=== PATIENT | male | born 2000 | race Caucasian/White ===

== ENCOUNTER 2021-10-05 19:29 | Emergency (ER) | payer BC ==
[2021-10-05] MEDS ORDERED: Ondansetron 4 MG/2 ML SDV IVPUSH ONE (22:04)
[2021-10-05] MEDS ORDERED: Sodium Chloride 0.9% 1,000 ML IV SCH (22:15)
[2021-10-05] MEDS ORDERED: Lactated Ringers 1,000 ML IV ONE (22:43)
--- NOTE | 2021-10-05 23:12 | EDM.PDOC ---
ED HPI GENERAL MEDICAL PROBLEM - General Chief Complaint: Gastrointestinal Problem Stated Complaint: DEHYDRATION Time Seen by Provider: 10/05/21 23:11 Source of Information: Reports: Patient History Limitations: Reports: No Limitations - History of Present Illness INITIAL COMMENTS - FREE TEXT/NARRATIVE: Patient is 20-year-old male with no significant past medical history presenting with a chief complaint of vomiting and diarrhea. Duration of symptoms is 1 week. Symptoms are constant. Symptoms are gradually getting worse. Patient states been unable to eat or drink anything for the past 3 days. Patient reports feeling extremely dehydrated and weak. Patient denies any fevers, chills, cough, sore throat. Patient has no difficulty breathing. Reports some mild abdominal cramps but no focal abdominal pain. No prior abdominal surgeries. No interventions performed prior to arrival. Patient did not have vaccine against Covid or flu. 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 [No Known Home Meds] 04/05/18 [History] Past Medical History Cardiovascular History: Reports: Other (See Below) Other Cardiovascular History: palpitations Gastrointestinal History: Reports: GERD - Infectious Disease History Infectious Disease History: Reports: None - Past Surgical History GI Surgical History: Reports: Appendectomy Social & Family History - Family History Family Medical History: No Pertinent Family History - Tobacco Use Tobacco Use Status *Q: Former Tobacco User Used Tobacco, but Quit: Yes Month/Year Tobacco Last Used: 1 week ago - Caffeine Use Caffeine Use: Reports: Coffee, Energy Drinks - Recreational Drug Use Recreational Drug Use: No ED ROS GENERAL - Review of Systems Review Of Systems: See Below Free Text/Narrative/Comment: In addition to that documented in the HPI above, the additional ROS was obtained: Constitutional: Denies fevers or chills Eyes: Denies vision changes ENMT: Denies sore throat CV: Denies chest pain Resp: Denies SOB GI: Per HPI : Denies painful urination MSK: Denies recent trauma Skin: Denies new rashes Neuro: Denies new numbness or tingling or weakness Endocrine: Denies unexpected weight loss Heme: Denies bleeding disorders ED EXAM, GI/ABD - Physical Exam Exam: See Below Text/Narrative:: I have reviewed the triage vital signs Const: Well nourished, well developed, appears stated age Eyes: Pupils Equal and reactive to light bilaterally, no conjunctival injection HENT: No signs of trauma or swelling, Neck supple without meningismus CV: Regular Rate Rhythm, Warm, well-perfused extremities RESP: Unlabored respiratory effort GI: soft, non-tender, non-distended, no masses MSK: No gross deformities appreciated Skin: Warm, dry. No rashes Neuro: Alert, sock folder II-XII grossly intact. Sensation and motor function of extremities grossly intact. Psych: Appropriate mood and affect. Course - Vital Signs Last Recorded V/S: Last Vital Signs Temp 37.9 C 10/05/21 21:59 Pulse 101 H 10/05/21 21:59 Resp 20 10/05/21 21:59 BP 142/90 H 10/05/21 21:59 Pulse Ox 97 10/05/21 21:59 Orthostatic Blood Pressure [ 138/95 Standing] Orthostatic Blood Pressure [ 142/68 Supine] - Orders/Labs/Meds Orders: Active Orders 24 hr Category Date Time Status Peripheral IV Insertion Adult [OM.PC] Stat Oth 10/05/21 22:04 Ordered Labs: Laboratory Tests 10/05/21 10/05/21 10/06/21 Range/Units 23:03 23:03 00:06 WBC 3.57 L (4.23-9.07) K/mm3 RBC 5.37 (4.63-6.08) M/mm3 Hgb 16.8 (13.7-17.5) gm/dl Hct 46.6 (40.1-51.0) % MCV 86.8 (79.0-92.2) fl MCH 31.3 (25.7-32.2) pg MCHC 36.1 H (32.2-35.5) g/dl RDW Std Deviation 37.7 (35.1-43.9) fL Plt Count 113 L D (163-337) K/mm3 MPV 10.4 (9.4-12.3) fl Neut % (Auto) 61.3 (34.0-67.9) % Lymph % (Auto) 25.8 (21.8-53.1) % [place] % (Auto) 12.6 H (5.3-12.2) % Eos % (Auto) 0 L (0.8-7.0) Baso % (Auto) 0.3 (0.1-1.2) % Neut # (Auto) 2.19 (1.78-5.38) K/mm3 Lymph # (Auto) 0.92 L (1.32-3.57) K/mm3 [place] # (Auto) 0.45 (0.30-0.82) K/mm3 Eos # (Auto) 0.00 L (0.04-0.54) K/mm3 Baso # (Auto) 0.01 (0.01-0.08) K/mm3 Sodium 136 (136-145) mEq/L Potassium 3.4 L (3.5-5.1) mEq/L Chloride 99 (98-107) mEq/L Carbon Dioxide 23 (21-32) mEq/L Anion Gap 17.4 H (5-15) BUN 13 (7-18) mg/dL Creatinine 1.0 (0.7-1.3) mg/dL Est Cr Clr Drug Dosing 137.00 mL/min Estimated GFR (MDRD) > 60 (>60) mL/min BUN/Creatinine Ratio 13.0 L (14-18) Glucose 88 (70-99) mg/dL Calcium 7.6 L (8.5-10.1) mg/dL Magnesium 1.9 (1.8-2.4) mg/dL Total Bilirubin 1.0 (0.2-1.0) mg/dL AST 33 (15-37) U/L ALT 41 (16-63) U/L Alkaline Phosphatase 61 (46-116) U/L C-Reactive Protein 3.8 H* (<1.0) mg/dL Total Protein 7.0 (6.4-8.2) g/dl Albumin 3.7 (3.4-5.0) g/dl Globulin 3.3 gm/dL Albumin/Globulin Ratio 1.1 (1-2) Lipase 148 (73-393) U/L SARS-CoV-2 RNA (JOSE ALBERTO) Positive H (NEGATIVE) Meds: Medications Discontinued Medications Generic Name Dose Route Start Last Admin Trade Name Freq PRN Reason Stop Dose Admin Sodium Chloride 1,000 mls @ 999 mls/hr 10/05/21 22:15 10/05/21 22:47 Normal Saline IV 10/05/21 23:14 999 mls/hr Q1H AZRA Administration Lactated Ringer's 1,000 mls @ 1,000 mls/hr 10/05/21 22:43 10/05/21 23:21 Ringers, Lactated IV 10/05/21 23:42 Not Given .BOLUS ONE Ondansetron HCl 4 mg 10/05/21 22:04 10/05/21 22:47 Ondansetron 4 Mg/2 Ml Sdv IVPUSH 10/05/21 22:05 4 mg ONETIME ONE Administration Departure - Departure Time of Disposition: 23:00 Disposition: Home, Self-Care 01 Clinical Impression: Vomiting, Diarrhea, COVID-19 - Discharge Information Instructions: Viral Gastroenteritis, Adult, [id number] Referrals: Andrew Weathers MD [Primary Care Provider] - Forms: ED Department Discharge Sepsis Event Note (ED) - Focused Exam Vital Signs: Vital Signs Temp Pulse Resp BP Pulse Ox 10/05/21 21:59 37.9 C 101 H 20 142/90 H 97 - My Orders Last 24 Hours: My Active Orders 10/05/21 22:04 Peripheral IV Insertion Adult [OM.PC] Stat - Assessment/Plan Last 24 Hours: My Active Orders 10/05/21 22:04 Peripheral IV Insertion Adult [OM.PC] Stat Assessment:: Patient is 20-year-old male who is Covid positive. Demonstrating vomiting and diarrhea. Laboratory studies normal. Patient is tolerating p.o. will have to administration of Zofran and IV fluids. No indication for emergent imaging. Patient discharged with Zofran prescription. Instructed for quarantine and return precautions.
== END 2021-10-06 01:37 | disposition home or self-care (01) ==
LOC: JD.ED 19:29
DX: U07.1 COVID-19 (principal); R19.7 Diarrhea, unspecified; R11.2 Nausea with vomiting, unspecified; K21.9 Gastro-esophageal reflux disease without esophagitis; Z87.891 Personal history of nicotine dependence; Z88.2 Allergy status to sulfonamides
CPT/HCPCS: 36415; 80053; 83690; 83735; 85025; 86140; 87635; 96374; 99284; J2405; J7030; U0002

== ENCOUNTER 2021-10-07 09:56 | Emergency (ER) | payer BC ==
[2021-10-07] MEDS ORDERED: Metoclopramide 10 MG/2 ML SDV IVPUSH ONE (10:21)
[2021-10-07] MEDS ORDERED: Ketorolac 30 MG/ML SDV IVPUSH ONE (10:21)
[2021-10-07] MEDS ORDERED: Sodium Chloride 0.9% 1,000 ML IV ONE (10:21)
--- NOTE | 2021-10-07 13:50 | EDM.PDOC ---
ED [facility] GENERAL MEDICAL PROBLEM - General Chief Complaint: Gastrointestinal Problem Stated Complaint: michael amb Time Seen by Provider: 10/07/21 10:08 Source of Information: Reports: Patient History Limitations: Reports: No Limitations - History of Present Illness Duration: Week(s): (two) Location: Reports: Abdomen Quality: Reports: Ache Severity: Mild Worsens with: Reports: Eating Associated Symptoms: Reports: Nausea/Vomiting Abdominal Pain Score (Numeric/FACES): 5 - Related Data Allergies Allergy/AdvReac Type Severity Reaction Status Date / Time Sulfa (Sulfonamide Allergy Rash Verified 10/07/21 10:14 Antibiotics) Home Meds: Home Meds Promethazine [Phenergan] 25 mg PO Q6H PRN #10 tab 10/07/21 [Rx] predniSONE 20 mg PO DAILY #7 tab 10/07/21 [Rx] Past Medical History Cardiovascular History: Reports: Other (See Below) Other Cardiovascular History: palpitations Gastrointestinal History: Reports: GERD - Infectious Disease History Infectious Disease History: Reports: None - Past Surgical History GI Surgical History: Reports: Appendectomy Social & Family History - Family History Family Medical History: No Pertinent Family History - Caffeine Use Caffeine Use: Reports: Coffee, Energy Drinks ED ROS GENERAL - Review of Systems Review Of Systems: Comprehensive ROS is negative, except as noted in HPI. Constitutional: Reports: Fever, Chills, Malaise, Weakness, Decreased Appetite Respiratory: Reports: No Symptoms Cardiovascular: Reports: No Symptoms GI/Abdominal: Reports: Diarrhea, Decreased Appetite, Nausea, Vomiting : Reports: No Symptoms Musculoskeletal: Reports: No Symptoms Skin: Reports: No Symptoms Neurological: Reports: No Symptoms ED EXAM, GI/ABD - Physical Exam Exam: See Below Exam Limited By: No Limitations General Appearance: Alert, No Apparent Distress Head: Atraumatic, Normocephalic Neck: Normal Inspection, Supple Respiratory/Chest: No Respiratory Distress, Lungs Clear Cardiovascular: Regular Rate, Rhythm, No Murmur GI/Abdominal Exam: Soft, Non-Tender, No Organomegaly Back Exam: Normal Inspection. No: CVA Tenderness (L), CVA Tenderness (R) Extremities: Normal Inspection Neurological: Alert, Oriented Course - Vital Signs Text/Narrative:: Patient received some IV fluid with 30 of Toradol and Reglan 10 mg IV. He is feeling much better at this time he feels well enough to go home currently. Since he was not started on steroids with his Covid diagnosis I will give him a prescription for steroids in addition to Phenergan. He already has a prescription for Zofran and has some Imodium at home. He knows to return to ER if symptoms are worse. Last Recorded V/S: Last Vital Signs Temp 98.8 F 10/07/21 10:10 Pulse 90 10/07/21 10:10 Resp 18 10/07/21 10:10 BP 142/81 H 10/07/21 10:10 Pulse Ox 95 10/07/21 10:10 - Orders/Labs/Meds Meds: Medications Discontinued Medications Generic Name Dose Route Start Last Admin Trade Name Freq PRN Reason Stop Dose Admin Sodium Chloride 1,000 mls @ 1,000 mls/hr 10/07/21 10:21 10/07/21 11:35 Normal Saline IV 10/07/21 11:20 1,000 mls/hr ONETIME ONE Administration Ketorolac Tromethamine 30 mg 10/07/21 10:21 10/07/21 11:36 Ketorolac 30 Mg/Ml Sdv IVPUSH 10/07/21 10:22 30 mg ONETIME ONE Administration Metoclopramide HCl 10 mg 10/07/21 10:21 10/07/21 11:36 Metoclopramide 10 Mg/2 Ml Sdv IVPUSH 10/07/21 10:22 10 mg ONETIME ONE Administration Departure - Departure Time of Disposition: 13:48 Disposition: Home, Self-Care 01 Condition: Good Clinical Impression: COVID-19, Gastroenteritis - Discharge Information Instructions: Symptoms of COVID-19 - CDC (12/01/2020), Dehydration, Adult, [id number], Viral Gastroenteritis, Adult, [id number] Referrals: PCP,None [Primary Care Provider] - Additional Instructions: Increase fluids. Zofran or Phenergan as needed. [id number] Imodium. Return to ER if worse. Follow-up with PCP if symptoms continue. Sepsis Event Note (ED) - Evaluation Sepsis Screening Result: No Definite Risk - Focused Exam Vital Signs: Vital Signs Temp Pulse Resp BP Pulse Ox 10/07/21 10:10 98.8 F 90 18 142/81 H 95
== END 2021-10-07 14:20 | disposition home or self-care (01) ==
LOC: JD.ED 09:56
DX: U07.1 COVID-19 (principal); K52.9 Noninfective gastroenteritis and colitis, unspecified; K21.9 Gastro-esophageal reflux disease without esophagitis; Z88.2 Allergy status to sulfonamides
CPT/HCPCS: 96374; 96375; 99284; J1885; J2765; J7030